=== PATIENT | male | born 2000 | race Caucasian/White ===

== ENCOUNTER 2021-01-27 16:22 | Emergency (ER) | payer BC, SELFPAY ==
--- NOTE | ~2021-01-27 | XR_ITS ---
EXAMINATION: XR finger 2nd RT min 2V EXAM DATE: 01/27/2021 16:43 INDICATION: Caught in grain door. TECHNIQUE: Right 2nd finger frontal, lateral and oblique projections obtained and reviewed. There is no prior study for comparison. FINDINGS: There is bandage overlying right 2nd finger obscuring soft tissue details, but suspect marco a p and large laceration at the fingertip, most likely bone is exposed. No definite tuft fracture is id entified through the bandage. IMPRESSION: Large deep right index finger laceration probably to the bone. No definite fracture but study is limited. Reviewed, dictated and finalized at location A.
--- NOTE | 2021-01-27 16:32 | ED.UPPEXIN ---
HPI - Extremity Injury (Upper) General Chief Complaint: Wound/Laceration Stated Complaint: right hand index finger injury Time Seen by Provider: 01/27/21 16:26 Source: patient Mode of arrival: ambulatory Limitations: no limitations History of Present Illness HPI narrative: 20-year-old man comes in today complaining of injury to the tip of his right index finger that happened approximately 15 minutes prior to arrival. Patient states he got caught in a grain door. He does not recall his last tetanus shot. complaint: injury to: right and finger (index) Other injuries: none Handedness: right Place: work Severity: moderate Relieving factors: none Exacerbating factors: movement of extremity Context: crush Related Data Home Medications Medication Instructions Recorded Confirmed No Home Medications 01/27/21 01/27/21 Allergies Allergy/AdvReac Type Severity Reaction Status Date / Time No Known Allergies Allergy Mild Unverified 03/30/04 10:19 Review of Systems Review of Systems: All systems reviewed & are unremarkable except as noted in HPI and below Gastrointestinal: Gastrointestinal: Denies nausea and Denies vomiting Musculoskeletal: Musculoskeletal: Denies arthralgias and Denies joint swelling Integumentary/Breasts: Skin/Breast: Denies pruritus, Denies erythema and Denies rash Neurologic: Denies vertigo, Denies dizziness and Denies syncope Hematologic/Lymphatic: Hematologic/Lymphatic: Denies easy bleeding and Denies easy bruising [facility] Social History Social History (Updated 01/27/21 @ 16:35 by Ivan Casanova MD) Smoking status: Never smoker Living arrangements: with family Exam Const: General: healthy appearing and alert Orientation/consciousness: patient oriented x3 Limitations: no limitations Other: Mild acute distress. Skin: General skin exam: normal color, no jaundice and no pallor Rashes: no rashes Neuro: General: patient oriented x3, moves all extremities, no focal motor deficits and CN's II-XI intact bilaterally Speech: normal speech Gait exam (Neuro): Normal gait present Extrem: General: no clubbing, cyanosis or edema Other: Right index finger is essentially degloved distal to the DIP crease and with soft tissue elements still attached on the ulnar aspect of the finger. Nail plate is still attached but appears to be approximately avulsed. Psych: Appearance: grossly normal and well kempt Mental Status: mental status grossly normal Affect: normal affect Attitude: cooperative Thought content: Yes Normal thought content present Course Course Emergency Course: 1730: Discussed findings with Dr. Heredia, plastic surgery (hand surgery) at [facility] in [place]. He accepted the patient to transfer and be seen at the emergency department at [facility] in [place]. Patient was accepted in the ER by Dr. Alexandre. Vital Signs Vital signs: Vital Signs Temperature 36.8 C 01/27/21 16:35 Pulse Rate 64 01/27/21 16:35 Respiratory Rate 16 01/27/21 16:35 Blood Pressure 134/79 01/27/21 16:35 Pulse Oximetry 99 01/27/21 16:35 Temperature 36.8 C 01/27/21 16:35 Pulse Rate 64 01/27/21 16:35 Respiratory Rate 16 01/27/21 16:35 Blood Pressure 134/79 01/27/21 16:35 Pulse Oximetry 99 01/27/21 16:35 Discharge Plan Discharge Clinical Impression: Fingertip avulsion Qualifiers: Encounter type: initial encounter Qualified Code(s): S61.209A - Unspecified open wound of unspecified finger without damage to nail, initial encounter Patient Disposition: Home, Self-Care Condition: Stable Instructions: Skin Avulsion (ED) Additional Instructions: Go directly to [facility] Emergency Department to be seen by Plastic surgery there. Do not eat or drink. Keep your finger elevated. Prescriptions: No Action No Home Medications RF: 0 Follow-up/Referrals: UNKNOWN,DOCTOR [Primary Care Provider] - Time of Disp
[2021-01-27 16:35] VITALS: BP 134/79; PULSE 64; RESP 16; TEMP 36.8; O2SAT 99
--- NOTE | 2021-01-27 16:45 | PC.NURSE ---
Attempted to call Dr. Soares with Plastics at [facility] Cleaning Supervisor states there is no one dice person.
[2021-01-27] MEDS: ceFAZolin SODIUM 1 GM VIAL IV PUSH (17:23)
--- NOTE | 2021-01-27 17:38 | PC.NURSE ---
with hand accepted at [facility]. Dr. Alexandre accepted as ER physician at [facility].
[2021-01-27 17:55] VITALS: BP 130/74; PULSE 66; RESP 16; TEMP 37.8; O2SAT 98
== END 2021-01-27 17:57 | disposition home or self-care (01) ==
PROVIDERS: Emergency Provider Emergency Medicine
DX: S61.300A Unspecified open wound of right index finger with damage to nail, initial encounter (principal); W23.0XXA Caught, crushed, jammed, or pinched between moving objects, initial encounter
CPT/HCPCS: 73140; 96374; 99283; 99284; J0690